=== PATIENT | female | born 1975 | race Caucasian/White ===

== ENCOUNTER 2024-10-14 12:21 | Emergency (ER) | payer OTHER | END 2024-10-14 13:47 | disposition home or self-care (01) | LOC: JD.ED 12:21 | DX: S61.452A Open bite of left hand, initial encounter (principal); S50.812A Abrasion of left forearm, initial encounter; I10 Essential (primary) hypertension; E78.00 Pure hypercholesterolemia, unspecified; Z90.89 Acquired absence of other organs; W55.01XA Bitten by cat, initial encounter | CPT/HCPCS: 99283 ==